=== PATIENT | female | born 1965 | race Caucasian/White ===

== ENCOUNTER → 2018-01-31 | Outpatient (CLI) | payer BC ==
[2018-01-31 10:21] LABS: BASO % 1 % (0-3); EOS # 0.1 x10^3/uL (0.0-0.7); EOS % 2 % (0-3); HEMATOCRIT 43.9 % (36.0-47.0); HEMOGLOBIN 14.6 g/dL (12.0-15.5); LYMPH # 1.5 x10^3/uL (1.0-4.8); LYMPH % 25 % (24-48); MEAN CORPUSCULAR HEMOGLOBIN 31 pg (25-35); MEAN CORPUSCULAR HGB CONC 33 g/dL (31-37); MEAN CORPUSCULAR VOLUME 92 fL (79-100); MONO # 0.3 x10^3/uL (0.0-1.1); MONO % 6 % (0-9); NEUT % 67 % (31-73); PLATELET COUNT 317 x10^3/uL (140-400); RED BLOOD COUNT 4.76 x10^6/uL (3.50-5.40); RED CELL DISTRIBUTION WIDTH 12.7 % (11.5-14.5)
[2018-01-31 10:26] LABS: ALBUMIN 3.8 g/dL (3.4-5.0); ALBUMIN/GLOBULIN RATIO 1.1 (1.0-1.7); CALCIUM 8.9 mg/dL (8.5-10.1); POTASSIUM 4.2 mmol/L (3.5-5.1); TOTAL PROTEIN 7.4 g/dL (6.4-8.2)
[2018-01-31 13:50] LABS: FREE T4 1.06 ng/dL (0.76-1.46)
[2018-01-31 18:08] LABS: ESTRADIOL LEVEL 78.9 pg/mL (.)
[2018-01-31 19:12] LABS: FSH 5.3 mIU/mL (.); T3 TOTAL 115 ng/dL (71-180); THYROPEROXIDASE ANTIBODY 12 IU/mL (0-34); THYROXINE 7.6 ug/dL (4.5-12.0)
[2018-02-03 00:08] LABS: ESTROGEN LEVEL 173 pg/mL (.)
[2018-02-04 16:11] LABS: TESTOSTERONE FREE 6.84 ng/dL (0.10-0.85); TESTOSTERONE TOTAL 159 ng/dL (3-41)
== END | disposition home or self-care (01) ==
LOC: LAB 08:37
DX: Z13.220 Encounter for screening for lipoid disorders (principal); N95.1 Menopausal and female climacteric states; E56.9 Vitamin deficiency, unspecified
CPT/HCPCS: 36415; 80053; 80061; 82306; 82670; 82672; 83001; 84402; 84403; 84436; 84439; 84480; 85025; 86376

== ENCOUNTER → 2018-12-25 | Outpatient (CLI) | payer BC ==
--- NOTE | 2018-12-25 11:05 | RAD ---
EXAM: Thyroid sonogram. HISTORY: Neck mass. TECHNIQUE: Sonographic imaging of the thyroid was performed. COMPARISON: None. FINDINGS: The right there are lobe measures 3.7 x 1.5 x 1.1 cm. The left thyroid lobe measures 2.6 x 0.6 x 0.5 cm. The isthmus measures 2.4 mm. There is a round hypoechoic nodule along the left aspect of the isthmus measuring 5 x 5 x 4 mm. No additional thyroid parenchymal lesion is seen. The left thyroid lobe is diffusely heterogeneous. There is a lymph node with benign fatty hilum within the superior right neck inferior to the parotid gland measuring 1.1 cm in long axis. This corresponds with the palpable abnormality of concern. IMPRESSION: 1. Small lymph node with benign appearing fatty hilum injury to the right parotid gland at the site of palpable concern. 2. 5 mm nodule within the left aspect of the thyroid isthmus. Electronically signed by: Nohelia Valencia MD (12/25/2018 11:02 AM) [id number]
--- NOTE | 2018-12-27 19:48 | RAD ---
DATE: 12/25/2018 EXAM: MAMMO MICHAEL SCREENING BILATERAL HISTORY: Routine screening COMPARISON: 11/09/2016 mammographic exam This study was interpreted with the benefit of Computerized Aided Detection (CAD). Breast Density: SCATTERED The breast parenchyma shows scattered fibroglandular densities. Breast parenchyma level B. FINDINGS: No suspicious calcifications, masses, or distortion. Minimal left periareolar skin thickening is questioned on the CC projection. IMPRESSION: Nonspecific left periareolar skin thickening is questioned. BI-RADS CATEGORY: 2 BENIGN FINDING(S). Minimal left periareolar skin thickening is suggested in the interval but are of indeterminate significance. No suspicious associated finding. Correlate with physical exam and clinical history determining interval follow-up. RECOMMENDED FOLLOW-UP: CLIN FOLLOW UP IMAGING CLINICALLY INDICATED PQRS compliance statement: Patient information was entered into a reminder system with a target due date in one year for the next mammogram. Mammography is a sensitive method for finding small breast cancers, but it does not detect them all and is not a substitute for careful clinical examination. A negative mammogram does not negate a clinically suspicious finding and should not result in delay in biopsying a clinically suspicious abnormality. "Our facility is accredited by the [employer] Mammography Program."
== END | disposition home or self-care (01) ==
LOC: MAMMO 10:09
PROVIDERS: ATTEND Registered Nurse
DX: Z12.31 Encounter for screening mammogram for malignant neoplasm of breast (principal); E04.1 Nontoxic single thyroid nodule; R59.0 Localized enlarged lymph nodes
CPT/HCPCS: 76536; 77063; 77067

== ENCOUNTER → 2019-10-18 | Outpatient (CLI) | payer BC ==
[2019-10-18 20:07] LABS: ESTRADIOL LEVEL 75.4 pg/mL (.); FSH 6.1 mIU/mL (.)
[2019-10-22 08:07] LABS: TESTOSTERONE FREE 3.19 ng/dL (0.10-0.85); TESTOSTERONE TOTAL 85 ng/dL (3-41)
== END ==
LOC: LAB 09:25
PROVIDERS: ATTEND Nurse Practitioner Family
DX: N95.1 Menopausal and female climacteric states (principal); R53.83 Other fatigue
CPT/HCPCS: 36415; 82670; 82672; 83001; 84402; 84403

== ENCOUNTER 2020-11-04 09:09 | Emergency (ER) | payer BC, OTHER ==
[~2020-11-04] VITALS: Ht 165.1 cm; Wt 69.0 kg
[2020-11-04] MEDS: HYDROcodone/APAP 5/325MG 1 TAB TABLET PO ONE (10:06)
--- NOTE | 2020-11-04 10:06 | PHYS DOC ---
Past History Past Surgical History: , Hysterectomy Alcohol Use: Rarely General Adult EDM: Chief Complaint: LOWEREXTREMITY INJURY HPI: HPI: Patient is a 55-year-old female who presents to the ER for left posterior ankle pain that radiates into her toes and to her calf. Patient is unsure how she injured her ankle but she reports feeling pain when she was running up the sidewalk. Patient rates pain 8 out of 10. She took Tylenol prior to arrival. Pain is worse with movement. She reports inability to bear weight. Patient denies decreased sensation to extremity. Review of Systems: Review of Systems: 14 body systems of the review of systems have been reviewed. See HPI for pertinent positive and negative responses, otherwise all other systems are negative, nonpertinent or noncontributory Current Medications: Current Meds: Current Medications Medications (Trade) Dose Ordered Sig/Allan Start Time Stop Time Status Last Admin Dose Admin Acetaminophen/ Hydrocodone Bitart (Lortab 5/325) 1 tab 1X ONCE 11/04/20 10:00 11/04/20 10:01 UNV Allergies: Allergies: Allergies Coded Allergies Type Severity Reaction Last Updated Verified No Known Drug Allergies 11/04/20 No Physical Exam: PE: Constitutional: Well developed, well nourished, no acute distress, non-toxic appearance. [] HENT: Normocephalic, atraumatic Eyes: PERRL, EOMI, conjunctiva normal, no discharge. [] Neck: Normal range of motion, no stridor Cardiovascular: Normal peripheral perfusion Lungs & Thorax: Normal work of breathing, no tachypnea Skin: Warm, dry, no erythema, no rash. [] Back: Normal range of motion Extremities: No tenderness, no cyanosis, no clubbing, ROM intact, no edema. Left lower extremity: Pain with range of motion of left ankle, swelling noted to posterior aspect of left ankle, positive Landeros test, neuro intact [] Neurologic: Alert and oriented X 3, normal motor function, normal sensory function, no focal deficits noted. [] Psychologic: Affect normal, judgement normal, mood normal. [] Current Patient Data: Vital Signs: Vital Signs Date Time Temp Pulse Resp B/P (MAP) Pulse Ox O2 Delivery O2 Flow Rate FiO2 11/04/20 09:20 97.7 98 18 130/95 100 EKG: EKG: [] Radiology/Procedures: Radiology/Procedures: PROCEDURE: ANKLE LEFT 3V EXAM: LEFT ANKLE 3 VIEWS. HISTORY: Left ankle pain after injury. COMPARISON: None. FINDINGS: Three views of the left ankle are obtained. No fractures are identified. Alignment is normal. Joint spaces are maintained. There are small plantar calcaneal spurs. IMPRESSION: 1. No fracture. Electronically signed by: Bertrand Brock MD (11/04/2020 10:38 AM) [id number] DICTATED AND SIGNED BY: KRIS BROCK MD DATE: 11/04/20 1036 CC: LINDA HERRERA APRN; MARIA LUZ CARRANZA MD ~MTH0 0[] Heart Score: C/O Chest Pain: No Risk Factors: Risk Factors: DM, Current or recent (<one month) smoker, HTN, HLP, family history of CAD, obesity. Risk Scores: Score 0 - 3: 2.5% MACE over next 6 weeks - Discharge Home Score 4 - 6: 20.3% MACE over next 6 weeks - Admit for Clinical Observation Score 7 - 10: 72.7% MACE over next 6 weeks - Early Invasive Strategies Course & Med Decision Making: Course & Med Decision Making Pertinent Labs and Imaging studies reviewed. (See chart for details) Patient is a 55-year-old female being seen for left posterior ankle pain. Patient is concerned that she may have ruptured her Achilles tendon running up the sidewalk. Patient has a positive Landeros test. Patient treated for pain in the ER. X-ray was performed of the left ankle to rule out fracture. X-ray was negative for any fractures. Patient's ankle placed in short leg posterior splint. Neuro intact pre and post splint placement. Patient tolerated procedure. Patient discharged home with pain medication. Patient educated on the risks associated with this pain medication including drowsiness. I spoke with the Dr. Steve at [facility] his orthopedic group. He agreed to see the patient in the office tomorrow to schedule her for surgery. Patient given follow-up information. I discussed with patient all findings and diagnostic testing as well as the need to follow-up with PCP for further eval uation and treatment or return to the ER if any new or worsening symptoms. Strict return precautions were also discussed at length. Patient voiced understanding and agreement with the plan. Patient is hemodynamically stable at the time of disposition. Dragon Disclaimer: Dragon Disclaimer: This electronic medical record was generated, in whole or in part, using a voice recognition dictation system. Departure Departure: Impression: Primary Impression: Achilles tendon rupture Qualified Codes: S86.012A - Strain of left Achilles tendon, initial encounter Disposition: HOME / SELF CARE / HOMELESS Condition: GOOD Referrals: MARIA LUZ CARRANZA MD (PCP) EDMOND STEVE MD Patient Instructions: Achilles Tendon Rupture (Complete) Additional Instructions: Dr. Steve with [facility] orthopedic group [phone] [id number] [facility] [address] [place], [place] [address] You were seen in the ER for left ankle pain. An x-ray was performed and it was negative for any acute findings. It is likely that you have ruptured your Achilles tendon. Your leg is being placed in a splint to help with support. You should not bear weight and you will be given crutches and crutch training. You can take ibuprofen or naproxen for mild pain. You are being discharged home with a prescription for [place]. This medication is hydrocodone Tylenol combination tablet. Please not take this medication when you need to be alert. Please not take this medication with alcohol. This medication may cause GI upset so eat with it. You will need to follow-up with the orthopedic doctors in the orthopedic clinic as soon as possible. Please see attached information regarding follow-up physician. You should perform range of motion exercises to prevent stiffness of your joints. Splints help with the pain and can promote healing but immobility can cause chronic pain over time. Please refer to these attached instructions regarding range of motion exercises. Keep the splint clean and dry avoid getting it wet. If the splint gets wet you will need to h ave it replaced. You should use ice and elevation to help with the swelling and pain. For the first 24 hours apply ice 20 minutes on 20 minutes off 4 times per day. Ensure that ice is in a plastic bag as to not get the splint wet. You may take NSAID medications (Tylenol, ibuprofen, naproxen) to help with the pain. Please return to the emergency department if you develop any of the following symptoms: Increasing pain that does not improve with treatments. New numbness or tingling Warmth, redness, skin discoloration, skin breakdown, drainage from under splint or near splinted area. Increasing inability to move your extremity or digits. Foul odor coming from splint Fevers or chills Nausea or vomiting Persistent lightheadedness We would be happy to see you for any other concerning symptoms regarding your splinted extremity. EMERGENCY DEPARTMENT GENERAL DISCHARGE INSTRUCTIONS Thank you for coming to [facility] (ED) today and trusting us with you care. We trust that you had a positivie experience in our Emergency Department. If you wish to speak to the department management, you may call the director at [phone]. YOUR FOLLOW UP INSTRUCTIONS ARE FOLLOWS: 1. Do you have a private Doctor? If you do not have a private doctor, please ask for a resource list of physicians or clinics that may be able to assist you with follow up care. 2. The Emergency Physician has interpreted your x-rays. The X-Ray specialist will also review them. If there is a change in the findings, you will be notified in 48 hours when at all possible. 3. A lab test or culture has been done, your results will be reviewed and you will be notified if you need a change in treatment. ADDITIONAL INSTRUCTIONS AND INFORMATION: 1. Your care today has been supervised by a physician who is specially trained in emergency care. Many problems require more than one evaluation for a complete diagnosis and treatment. We recommend that you schedule your follow up appointment as recommended to ensure complete treatment of you illness or injury. If you are unable to obtain follow up care and continue to have a problem, or if your condition worsens, we recommend that you return to the ED. 2. We are not able to safely determine your condition over the phone nor are we able to give sound medical advice over the phone. For these safety reasons, if you call for medical advice we will ask you to come to the ED for further evaluation. 3. If you have any questions regarding these discharge instructions please call the ED at [phone]. SAFETY INFORMATION: In the interest of safety, wellness, and injury prevention; we encourage you to wear your sealbelt, if you smoke; quite smoking, and we encourage family to use a protective helmet for bicycling and other sporting events that present an increased risk for head injury. IF YOUR SYMPTOMS WORSEN OR NEW SYMPTOMS DEVELOP, OR YOU HAVE CONCERNS ABOUT YOUR CONDITION; OR IF YOUR CONDITION WORSENS WHILE YOU ARE WAITING FOR YOUR FOLLOW UP APPOINTMENT; EITHER CONTACT YOUR PRIMARY CARE DOCTOR, THE PHYSICIAN WHOSE NAME AND NUMBER YOU WERE GIVEN, OR RETURN TO THE ED IMMEDIATELY. Scripts Hydrocodone Bit/Acetaminophen (HYDROCODONE-APAP 5-325 ) 1 Each Tablet 1 TAB PO PRN Q6HRS PRN for PAIN for 2 Days, #8 TAB 0 Refills Prov: LINDA HERRERA APRN 11/04/20 LINDA HERRERA APRN Nov 04, 2020 10:06
--- NOTE | 2020-11-04 10:40 | RAD ---
EXAM: LEFT ANKLE 3 VIEWS. HISTORY: Left ankle pain after injury. COMPARISON: None. FINDINGS: Three views of the left ankle are obtained. No fractures are identified. Alignment is normal. Joint spaces are maintained. There are small planta r calcaneal spurs. IMPRESSION: 1. No fracture. Electronically signed by: Bertrand Brock MD (11/04/2020 10:38 AM) [id number]
[2020-11-04] MEDS ORDERED: HYDR-2155 PO (10:49)
[2020-11-04 11:25] VITALS: BP 125/75
== END 2020-11-04 11:28 | disposition home or self-care (01) ==
LOC: ER 09:09
DX: S86.012A Strain of left Achilles tendon, initial encounter (principal); X58.XXXA Exposure to other specified factors, initial encounter; Y93.89 Activity, other specified; Y92.89 Other specified places as the place of occurrence of the external cause; Y99.8 Other external cause status
CPT/HCPCS: 29515; 73610; 99283

== ENCOUNTER → 2020-11-06 | Outpatient (CLI) | payer BC ==
[2020-11-04 11:25] VITALS: BP 125/75
[~2020-11-06] MED LIST: HYDR-2155 PO
--- NOTE | 2020-11-06 18:44 | RAD ---
Exam: Chest 2 views INDICATION: Encounter for preprocedural examination TECHNIQUE: Frontal and lateral views the chest Comparisons: None FINDINGS: The cardiomediastinal silhouette and pulmonary vessels are within normal limits. The lung and pleural spaces are clear. IMPRESSION: No acute cardiopulmonary process. Electronically signed by: Rainer Mata MD (11/06/2020 6:42 PM) [facility]
== END ==
LOC: RAD 18:25
PROVIDERS: ATTEND Family Medicine
DX: Z01.818 Encounter for other preprocedural examination (principal)
CPT/HCPCS: 71046

== ENCOUNTER → 2021-02-04 | Outpatient (CLI) | payer BC ==
--- NOTE | 2021-02-06 09:54 | RAD ---
Left lower extremity arterial duplex ultrasound 02/06/2021 INDICATION: Left lower extremity pain. History of Achilles repair. COMPARISON STUDY: None Discussion: Ultrasound evaluation of the major arteries of the left lower extremity was performed including color Doppler imaging spectral analysis. Normal waveform morphology and velocities are seen throughout the major arteries of the left lower extremity. No focal elevation of velocity suggestive of a hemodynam ically significant stenosis is seen. No other focal sonographic abnormalities are seen. The evaluated vessels include the left common femoral, deep femoral, superficial femoral, popliteal, posterior tibial, peroneal, anterior tibial, and dorsalis pedis arteries. IMPRESSION: No ultrasound of evidence of hemodynamically significant stenosis involving the major art eries of the left lower extremity Electronically signed by: Flaquito Cabrera MD (02/06/2021 9:52 AM) [id number]
== END ==
LOC: US 09:55
PROVIDERS: ATTEND Podiatrist
DX: E11.51 Type 2 diabetes mellitus with diabetic peripheral angiopathy without gangrene (principal)
CPT/HCPCS: 93926